=== PATIENT | male | born 1985 | race Caucasian/White ===

== ENCOUNTER 2017-04-17 04:03 | Emergency (ER) | payer SELFPAY ==
[~2017-04-17] VITALS: Ht 177.8 cm; Wt 94.0 kg
[2017-04-17 04:16] VITALS: BP 136/74; PULSE 87; RESP 16; TEMP 97.9; O2SAT 98
[2017-04-17] MEDS ORDERED: LISI-515 PO (04:21)
--- NOTE | 2017-04-17 05:16 | RADRPT ---
EXAM DATE/TIME: 04/17/2017 04:44 [place] COMPARISON: No previous studies available for comparison. INDICATIONS : Trauma, fall on stairs. MEDICAL HISTORY : None. SURGICAL HISTORY : None. ENCOUNTER: Initial ACUITY: 1 day PAIN SCORE: 8/10 LOCATION: Left anterior knee FINDINGS: The bony structures appear intact. The knee joint is normally aligned. No effusion is seen. There is a soft tissue injury/laceration seen in the infrapatellar region. There is soft tissue swelling at th e infrapatellar region and the lateral knee region. There is small focus of air in the lateral knee r egion. CONCLUSION: Soft tissue injury. Jesus Paul MD on April 17, 2017 at 5:13 Board Certified Radiologist. This report was verified electronically.
[2017-04-17] MEDS ORDERED: KETOROLAC TROMETHAMINE 60 MG/2 ML (IM) VIAL IM ONE (05:30)
[2017-04-17] MEDS ORDERED: KETOROLAC TROMETHAMINE 30 MG/ML (IVP) VIAL IV PUSH ONE (05:30)
--- NOTE | 2017-04-17 06:03 | PD ---
HPI . Injury Chief Complaint: Injury Time Seen by Provider: 04:31 Travel History International Travel<30 days: No Contact w/Intl Traveler<30days: No Traveled to known affect area: No History of Present Illness HPI 31-year-old male intoxicated, fell off a 5 foot height landing onto his left anterior knee on concrete. Patient denies other extremity injury or head injury , no loss of consciousness. Patient notes pain tenderness and laceration to the prepatellar surface inferiorly of his left knee. Patient was ambulatory at the scene did not notice the laceration at first but then begins having pain and worsening swelling. Bleeding is controlled. Patient states she is up-to- date on his tetanus [facility] Past Medical History Narrative Medical Past medical history reviewed ADD: Yes Autoimmune Disease: Yes (Can't remember the name. ) Anxiety: Yes Cardiovascular Problems: Yes (HTN) Hypertension: Yes Tetanus Vaccination: < 5 Years Influenza Vaccination: No Past Surgical History Joint Replacement: Yes (L shoulder repair) Other Surgery: Yes (nasal septal repair, R hand boxer repair) Social History Alcohol Use: Yes (1-2x a week) Tobacco Use: Yes (1/2-1PPD) Substance Use: No Allergies-Medications (Allergen,Severity, Reaction): Coded Allergies: No Known Drug Allergies (Verified Allergy, Unknown, 04/17/17) Reported Meds & Prescriptions Reported Meds & Active Scripts Active Reported Lisinopril 20 Mg Tab 20 Mg PO DAILY Narrative Medication Allergies and medications reviewed Review of Systems Except as stated in HPI: all other systems reviewed are Neg General / Constitutional: No: Fever Eyes: No: Visual changes HENT: No: Headaches Cardiovascular: No: Chest Pain or Discomfort Respiratory: No: Shortness of Breath Gastrointestinal: No: Abdominal Pain Genitourinary: No: Dysuria Musculoskeletal: Positive: Arthralgias, Pain, No: Limited ROM Skin: No Rash Neurologic: No: Weakness Psychiatric: No: Depression Endocrine: No: Polydipsia Hematologic/Lymphatic: No: Easy Bruising Physical Exam Narrative GENERAL: Awake and mildly intoxicated, easily redirectable verbally SKIN: Warm and dry. Color is normal no diaphoresis cyanosis or pallor HEAD: Atraumatic. Normocephalic. EYES: Pupils equal and round. No scleral icterus. No injection or drainage. ENT: No nasal bleeding or discharge. Mucous membranes pink and moist. NECK: Trachea midline. No JVD. Supple nontender full range of motion CARDIOVASCULAR: Regular rate and rhythm. RESPIRATORY: No accessory muscle use. Clear to auscultation. Breath sounds equal bilaterally. GASTROINTESTINAL: Abdomen soft, non-tender, nondistended. Hepatic and splenic margins not palpable. MUSCULOSKELETAL: Left lower extremity, prepatellar inferior surface with elliptical laceration 10 cm in length with slight maceration wound edges, deep through skin surface, not affecting deep structures however. NEUROLOGICAL: Awake and alert. No obvious cranial nerve deficits. Motor grossly within normal limits. Five out of 5 muscle strength in the arms and legs. Normal speech. PSYCHIATRIC: Appropriate mood and affect; insight and judgment normal. Data Data Last Documented VS Vital Signs Date Time Temp Pulse Resp B/P (MAP) Pulse Ox O2 Delivery O2 Flow Rate FiO2 04/17/17 04:16 97.9 87 16 136/74 (94) 98 Orders Orders Ice/Cold Pack (04/17/17 04:28) Knee, Complete (4vws) (04/17/17 04:28) Ketorolac Inj (Toradol Inj) (04/17/17 05:30) [facility] Medical Decision Making Medical Screen Exam Complete: Yes Emergency Medical Condition: Yes Medical Record Reviewed: Yes Differential Diagnosis Knee contusion, knee laceration, ligamentous injury Narrative Course Procedure: Staple wound closure. Patient was irrigated copiously, explored to depth, no deep structures involved, full range of motion strength intact. Local anesthesia with 1% lidocaine 5 cc, staple closure interrupted 12. Patient tolerated well. Bacitracin, sterile dressing, knee immobilizer applied , patient given crutches with instruction however awaiting sobriety for ambulation Diagnosis Primary Impression: Knee contusion Qualified Codes: S80.02XA - Contusion of left knee, initial encounter Additional Impression: Laceration of knee, right Qualified Codes: S81.011A - Laceration without foreign body, right knee, initial encounter Patient Instructions: Alcohol Intoxication (ED), General Instructions, Laceration (ED) Additional Instructions: Local care is discussed. Dressing change twice daily with thorough cleansing each time air dry, bacitracin applied. Use knee immobilizer, staple removal in 10-12 days. Follow-up with your private physician, or return here for evaluation and removal Disposition: 01 DISCHARGE HOME Condition: Stable Patrick Stallings MD Apr 17, 2017 06:03
[2017-04-17 07:48] VITALS: BP 112/87; PULSE 110; RESP 18; TEMP 98.2; O2SAT 99
== END 2017-04-17 10:00 | disposition home or self-care (01) ==
LOC: NEPE 04:03
DX: S80.02XA Contusion of left knee, initial encounter (principal); S81.011A Laceration without foreign body, right knee, initial encounter; F10.129 Alcohol abuse with intoxication, unspecified; F98.8 Other specified behavioral and emotional disorders with onset usually occurring in childhood and adolescence; F41.9 Anxiety disorder, unspecified; I10 Essential (primary) hypertension; F17.200 Nicotine dependence, unspecified, uncomplicated; W17.89XA Other fall from one level to another, initial encounter; Z79.899 Other long term (current) drug therapy
CPT/HCPCS: 12004; 73564; 96374; 99284; J1885

== ENCOUNTER 2017-04-20 20:57 | Emergency (ER) | payer SELFPAY ==
[~2017-04-20] VITALS: Ht 177.8 cm; Wt 93.2 kg
[~2017-04-20 20:57] MED LIST: LISI-515 PO
[2017-04-20 20:59] VITALS: BP 144/86; PULSE 111; RESP 16; TEMP 97.9; O2SAT 97
--- NOTE | 2017-04-20 22:04 | PD ---
HPI Chief Complaint: Injury Time Seen by Provider: 21:54 Travel History International Travel<30 days: No Contact w/Intl Traveler<30days: No Traveled to known affect area: No History of Present Illness HPI 31-year-old white male presents to emergency department with complains of left knee pain. He states that he had an injury a few days ago and a laceration. He states it has been more active here last day or so and he has noted increasing swelling and pain. He states he is taking ibuprofen without relief. He states that he has to get back to work and he cannot take any time off. He denies any numbness, tingling or weakness. No fever chills. No purulent drainage. History Past Medical Histgory Narrative Medical Multiple orthopedic injuries Tetanus Vaccination: < 5 Years Past Surgical History Narrative Surgical Multiple orthopedic surgery Social History Alcohol Use: Yes (1-2x a week) Tobacco Use: Yes (1/2-1PPD) Allergies-Medications (Allergen,Severity, Reaction): Coded Allergies: No Known Drug Allergies (Verified Allergy, Unknown, 04/17/17) Reported Meds & Prescriptions Reported Meds & Active Scripts Active Reported Lisinopril 20 Mg Tab 20 Mg PO DAILY Review of Systems Except as stated in HPI: all other systems reviewed are Neg Physical Exam Narrative GENERAL: This is a well-nourished, well-developed patient, in no apparent distress. SKIN: No rashes, ecchymoses or lesions. Warm and dry. HEAD: Atraumatic. Normocephalic. EYES: PERRL, EOMI, no discharge or injection. No scleral icterus. EARS: Clear NOSE: Nasal turbinates appear normal. THROAT: Mucosa pink and moist. Airway patent. NECK: Trachea midline. supple, moves head freely. LUNGS: Clear to auscultation. CV: Regular in rhythm. ABDOMEN: Soft nontender. EXT: Examination of the left lower extremity reveals a healing laceration. He has a moderate amount of swelling to the knee as well as the lower leg. This appears to be dependent secondary to his trauma. He has a large area of ecchymosis to the thigh which is draining down into the knee and foot. There is no erythema or warmth. No drainage. The sutures are intact without signs of infection. He has decreased range of motion in the knee due to pain and swelling. Patient is ambulatory with a mildly antalgic gait. No pain in the hip, ankle or foot. He has intact sensation with good distal pulses. No calf tenderness. No Homans sign. Data Data Last Documented VS Vital Signs Date Time Temp Pulse Resp B/P (MAP) Pulse Ox O2 Delivery O2 Flow Rate FiO2 04/20/17 20:59 97.9 111 16 144/86 (105) 97 Room Air MDM Medical Screen Exam Complete: Yes Emergency Medical Condition: No Differential Diagnosis MDM: High Differential diagnoses: Fracture, sprain, strain, dislocation, contusion, neurovascular injury Narrative Course A medical screening exam was performed: At the time of evaluation the presenting medical condition was determined not to be of an emergent nature. The patient was given the option of receiving additional care, but declined. Patient was given options for additional community resources from which to obtain care. The Patient Has Been advised to seek medical attention for their presenting complaint. The patient has been advised to return to the ER at any time if an emergent condition develops. Primary Impression: Encounter for medical screening examination Condition: Stef Ta Apr 20, 2017 22:04
== END 2017-04-20 22:13 | disposition left against medical advice (07) ==
LOC: NEPK 20:57
DX: M25.562 Pain in left knee (principal); F17.210 Nicotine dependence, cigarettes, uncomplicated
CPT/HCPCS: 99281